=== PATIENT | female | born 1975 | race Caucasian/White ===

== ENCOUNTER 2024-02-17 06:11 | Day surgery (SDC) | payer OTHER ==
[~2024-02-17] VITALS: Ht 157.5 cm; Wt 76.9 kg
[~2024-02-17 06:11] MED LIST: CODACE30 PO; HYDACE5 PO; IBUP400 PO; Lactated Ringer's 1,000 ML IV ONE; METCAR500 PO; PROM25 PO
[2024-02-17] MEDS ORDERED: CeFAZolin Sodium 2,000 MG VIAL ONE (06:32)
[2024-02-17] MEDS ORDERED: NS 50 ML IV ONE (06:32)
[2024-02-17] MEDS ORDERED: Tranexamic Acid 100 ML IV ONE (06:34)
[2024-02-17] MEDS ORDERED: LIOT5 (06:41)
[2024-02-17] MEDS ORDERED: LEVSOD100 (06:41)
[2024-02-17] MEDS ORDERED: EPINEPhrine HCl 1 MG / ML 30ML Vial ONE (06:56)
[2024-02-17] MEDS ORDERED: Lidocaine 1%-Epineph 1:100000 20 ML MDV ONE (06:56)
[2024-02-17] MEDS ORDERED: Lactated Ringer's 1,000 ML IV ONE (06:56)
[2024-02-17] MEDS ORDERED: FentaNYL Citrate 50 MCG/ML 2 ML Injection ONE (07:09)
[2024-02-17] MEDS ORDERED: Midazolam HCl 1MG / ML 2ML Vial ONE (07:10)
[2024-02-17] MEDS ORDERED: Ropivacaine 0.5% HCL/PF 5 MG/ML 30ML Vial ONE (07:22)
[2024-02-17] MEDS ORDERED: propofoL 40 ML IV ONE (07:30)
[2024-02-17] MEDS ORDERED: DiphenhydrAMINE HCl 50 MG/ML 1ML Vial ONE (07:32)
[2024-02-17] MEDS ORDERED: Ondansetron HCl 2 MG / ML 2ML Vial ONE (07:32)
[2024-02-17] MEDS ORDERED: Ketorolac Tromethamine 30mg Vial ONE (07:32)
[2024-02-17] MEDS ORDERED: Dexamethasone Sod Phos 10 MG/ML 1ML VIAL ONE (07:32)
[2024-02-17] MEDS ORDERED: HYDROmorphone HCl/Pf 1MG SYR ONE ×2 (07:52→09:17)
--- NOTE | 2024-02-17 10:35 | NUR ---
02/17/24 1035 JAZMINE OBREGON INCENTIVE SPIROMETER DEMONSTATED [facility] W/ PT
[2024-02-17 10:41] VITALS: BP 127/81
== END 2024-02-17 11:09 | disposition home or self-care (01) ==
LOC: ORSCSDS 06:11
PROVIDERS: Orthopaedic Surgery Sports Medicine
PROC: 0MRP4KZ Replacement of Left Knee Bursa and Ligament with Nonautologous Tissue Substitute, Percutaneous Endoscopic Approach (ICD-10-PCS; principal; 2024-02-17 07:30)
DX: S83.512A Sprain of anterior cruciate ligament of left knee, initial encounter (principal); S83.242A Other tear of medial meniscus, current injury, left knee, initial encounter; Y93.44 Activity, trampolining; E03.9 Hypothyroidism, unspecified; Z79.899 Other long term (current) drug therapy
CPT/HCPCS: C1713; C1889; J0171; J0690; J1100; J1170; J1200; J1885; J2250; J2405; J2704; J2795; J3010; J7120

== ENCOUNTER 2025-08-13 00:40 | Emergency (ER) | payer OTHER ==
[~2025-08-13] VITALS: Ht 157.5 cm; Wt 80.7 kg
[~2025-08-13 00:40] MED LIST changes: +LEVSOD100; +LIOT5; -Lactated Ringer's 1,000 ML IV ONE
[2025-08-13 01:01] LABS: Source, Urine Clean Catch
[2025-08-13 01:27] LABS: Bilirubin, Urine Neg (Neg); Glucose Qualitative, Urine Neg (Neg); Ketones, Urine Neg (Neg); Leukocyte Esterase, Urine 1+ (Neg); Protein, Urine 2+ (Neg); Specific Gravity, Urine 1.005 (1.003-1.022); Urobilinogen, Urine NORM (Normal)
[2025-08-13 01:43] LABS: Color, Urine Pale Yellow (P-Yellow)
[2025-08-13 01:44] LABS: White Blood Cells, Urine 0-2 /hpf (0-5)
[2025-08-13 02:41] LABS: BASOPHILS ABSOLUTE AUTO 0.05 K/mm3 (0.00-0.23); BASOPHILS PERCENT AUTO 0 % (0-2); EOSINOPHILS ABSOLUTE AUTO 0.19 K/mm3 (0.00-0.68); EOSINOPHILS PERCENT AUTO 1 % (0-6); Hematocrit 42.9 % (33.0-51.0); Hemoglobin 14.4 g/dL (11.5-16.0); IMMATURE GRAN ABSOLUTE AUTO 0.09 K/mm3 (0.00-0.10); IMMATURE GRAN PERCENT AUTO 1 % (0-1); LYMPHOCYTES ABSOLUTE AUTO 3.29 K/mm3 (0.84-5.20); LYMPHOCYTES PERCENT AUTO 19 % (21-46); MONOCYTES ABSOLUTE AUTO 1.11 K/mm3 (0.16-1.47); MONOCYTES PERCENT AUTO 6 % (4-13); Mean Corpuscular HGB Conc 33.6 g/dL (31.5-36.5); Mean Corpuscular Volume 90 fL (80-100); NEUTROPHILS ABSOLUTE AUTO 12.60 K/mm3 (1.96-9.15); NEUTROPHILS PERCENT AUTO 73 % (41-73); NRBC ABSOLUTE 0.00 K/mm3 (0.00-0.02); NRBC Auto 0.0 /100 WBC (0.0-0.2); Platelet Count 321 K/mm3 (150-400); RDW Coefficient Variation 13.2 % (11.7-14.2); RDW Standard Deviation 43.6 fL (35.1-46.3)
[2025-08-13 03:02] LABS: Alanine Aminotransfer (ALT/SGP 35.0 U/L (12-78); Albumin, Blood 4.1 g/dL (3.4-5.0); Albumin/Globulin Ratio 1.1 (0.8-1.8); Anion Gap 8.0 mmol/L (3-11); Aspartate Aminotrans (AST/SGOT 22.0 U/L (12-37); Bilirubin, Total 0.3 mg/dL (0.1-1.0); Blood Urea Nitrogen 20.0 mg/dL (8-24); CO2, Blood 27.0 mmol/L (21-32); Calcium, Blood 9.6 mg/dL (8.5-10.1); Chloride, Blood 105.0 mmol/L (98-108); Creatinine, Blood 0.8 mg/dL (0.40-1.00); Globulin, Blood 3.9 g/dL (2.2-4.0); Glucose, Blood 105.0 mg/dL (70-99); Potassium, Blood 3.6 mmol/L (3.5-5.5); Sodium, Blood 136.0 mmol/L (136-145); Total Protein, Blood 8.0 g/dL (6.4-8.2)
[2025-08-13 04:46] VITALS: BP 113/70
[2025-08-13] MEDS ORDERED: CEPH500 PO (04:54)
[2025-08-13] MEDS ORDERED: OXYB5 PO (04:55)
[2025-08-13] MEDS ORDERED: RX Prepack 2 Tabs Ondansetron ODT 4MG UD ONE (05:00)
[2025-08-13] MEDS ORDERED: RX PP HYDROcodone-APAP 1 Prepack/30MLBTL UD ONE (05:05)
== END 2025-08-13 05:09 | disposition home or self-care (01) ==
LOC: ER 00:40
PROVIDERS: Emergency Medicine; Student in an Organized Health Care Education/Training Program
DX: R31.9 Hematuria, unspecified (principal); N39.0 Urinary tract infection, site not specified; Z87.440 Personal history of urinary (tract) infections; Z88.6 Allergy status to analgesic agent; Z88.8 Allergy status to other drugs, medicaments and biological substances; Z88.5 Allergy status to narcotic agent; Z79.890 Hormone replacement therapy; Z79.899 Other long term (current) drug therapy
CPT/HCPCS: 74177; 80053; 81001; 81025; 85025; 99284-25; A9270; Q9967